=== PATIENT | male | born 1975 | race Caucasian/White ===

== ENCOUNTER 2018-06-11 11:00 | Emergency (ER) | payer OTHER ==
[~2018-06-11] VITALS: Ht 185.4 cm; Wt 68.0 kg
--- NOTE | 2018-06-11 11:18 | PHYS DOC ---
Past History Additional Past Surgical Histo: cervical fusion Smoking: Cigarettes Adult General Chief Complaint Chief Complaint: CHEST PAIN HPI HPI Patient is a 42-year-old male who presents to the emergency department for evaluation. He states that he saw his PCP yesterday for Toradol injection, related to his recurrent migraine headaches. He states that he looked flushed in the office in the PCP did a headache, and inquired if the patient was having any chest pain. The patient denied, and his PCP told him that he should come to the emergency department if he experiences any chest pain in the next 24 hours. The patient awoke this morning with right-sided chest discomfort, primarily in the area of his right shoulder. He thus presented to the emergency department. He denies any shortness of breath, pleuritic pain, dizziness, lightheadedness, exertional pain, or positional pain. Palpation of the affected area does not particularly worsen the patient's pain. There are no known alleviating or exacerbating factors to the patient's symptoms, although states the pain has gradually been worsening over the past 6 hours. The patient denies any family history of premature onset coronary artery disease. Patient's HEART score is a 1. Review of Systems Review of Systems Constitutional: Denies fever or chills [] Eyes: Denies change in visual acuity, redness, or eye pain [] HENT: Denies nasal congestion or sore throat [] Respiratory: Denies cough or shortness of breath [] Cardiovascular: No additional information not addressed in HPI [] GI: Denies abdominal pain, nausea, vomiting, bloody stools or diarrhea [] : Denies dysuria or hematuria [] Musculoskeletal: Denies back pain or joint pain [] Integument: Denies rash or skin lesions [] Neurologic: Denies current headache, focal weakness or sensory changes [] Endocrine: Denies polyuria or polydipsia [] All other systems were reviewed and found to be within normal limits, except as documented in this note. Allergies Allergies Allergies Coded Allergies Type Severity Reaction Last Updated Verified meperidine Allergy Unknown 06/11/18 Yes morphine Allergy Unknown 06/11/18 Yes Physical Exam Physical Exam PHYSICAL EXAM: CONSTITUTIONAL: Well developed, well nourished HEAD: normocephalic, atraumatic EENT: PERRL, EOMI. Conjunctivae normal color, sclerae non-icteric; moist mucous membranes. NECK: Supple, non-tender; no meningismus. LUNGS: Lungs CTA, breathing even and unlabored. Normal air movement. HEART: Regular rate and rhythm, no murmur CHEST: No deformity; non-tender ABDOMEN: The abdomen is soft, and non-tender, no masses or bruits. EXTREM: Normal ROM; no deformity, no calf tenderness. Normal pulses palpable in all extremities. There is no pedal edema. SKIN: No rash; no diaphoresis NEURO: Alert; normal speech and cognition; CN's grossly intact; strength grossly intact without focal deficit. BACK: No CVA TTP. EKG EKG [Normal sinus rhythm a rate of 90 bpm, normal axis, normal intervals, nonspecific ST/T changes.] Radiology/Procedures Radiology/Procedures [PROCEDURE: CHEST PA & LATERAL PA and lateral chest radiograph. History: Chest pain since the morning. Comparison: None. Findings: Cardiomediastinal silhouette is within normal limits for size. Bilateral lung graves appear clear without evidence of infiltrate, effusion, or pneumothorax. Lung graves appear hyperinflated. Impression: 1. No acute cardiopulmonary process. 2. Lung graves appear hyperinflated, suggesting obstructive lung disease.] Course & Med Decision Making Course & Med Decision Making Pertinent Labs and Imaging studies reviewed. (See chart for details) [12:00 PM:Patient remains stable. I discussed test results, the need for close follow-up, and return precautions.] Dragon Disclaimer Dragon Disclaimer This electronic medical record was generated, in whole or in part, using a voice recognition dictation system. Departure Departure: Impression: Primary Impression: Atypical chest pain Disposition: HOME, SELF-CARE Condition: STABLE Referrals: RULA BALL MD (PCP) Patient Instructions: Chest Pain (Nonspecific), Chest Wall Pain NAFISA DEAL MD Jun 11, 2018 11:18
[2018-06-11] MEDS ORDERED: ASPIRIN 81 MG TAB.CHEW PO ONE (11:30)
[2018-06-11 11:31] LABS: BASO % 1 % (0-3); EOS # 0.1 x10^3/uL (0.0-0.7); EOS % 1 % (0-3); HEMATOCRIT 46.1 % (39.0-53.0); HEMOGLOBIN 16.1 g/dL (13.0-17.5); LYMPH # 1.6 x10^3/uL (1.0-4.8); LYMPH % 26 % (24-48); MEAN CORPUSCULAR HEMOGLOBIN 33 pg (25-35); MEAN CORPUSCULAR HGB CONC 35 g/dL (31-37); MEAN CORPUSCULAR VOLUME 95 fL (79-100); MONO # 0.5 x10^3/uL (0.0-1.1); MONO % 8 % (0-9); NEUT # 3.9 x10^3uL (1.8-7.7); NEUT % 64 % (31-73); PLATELET COUNT 222 x10^3/uL (140-400); RED BLOOD COUNT 4.87 x10^6/uL (4.30-5.70); RED CELL DISTRIBUTION WIDTH 13.1 % (11.5-14.5)
[2018-06-11 11:35] VITALS: BP 123/65
--- NOTE | 2018-06-11 11:39 | EKG ---
[address] [address] Test Date: 2018-06-11 Test Time: 11:04:55 Pat Name: PAULY PURDY Department: Room: Gender: M Construction Coordinator: : 1975 Requested By: NAFISA DEAL Order Number: [id number] Reading MD: Measurements Intervals [place] Rate: 98 P: 70 OK: 142 QRS: 90 QRSD: 88 T: 62 QT: 326 QTc: 418 Interpretive Statements SINUS RHYTHM NO SPECIFIC ECG ABNORMALITIES RI6.01 No previous ECG available for comparison
--- NOTE | 2018-06-11 11:44 | RAD ---
PA and lateral chest radiograph. History: Chest pain since the morning. Comparison: None. Findings: Cardiomediastinal silhouette is within normal limits for size. Bilateral lung graves appear clear without evidence of infiltrate, effusion, or pneumothorax. Lung graves appear hyperinflated. Impression: 1. No acute cardiopulmonary process. 2. Lung graves appear hyperinflated, suggesting obstructive lung disease. Electronically signed by: Reese Cooper MD (06/11/2018 11:41 AM) [place] [id number]
[2018-06-11 11:54] LABS: ALBUMIN 4.3 g/dL (3.4-5.0); ALBUMIN/GLOBULIN RATIO 1.3 (1.0-1.7); CALCIUM 9.2 mg/dL (8.5-10.1); CREATININE 1.1 mg/dL (0.7-1.3); GFR 73.8; POTASSIUM 3.9 mmol/L (3.5-5.1); TOTAL BILIRUBIN 0.4 mg/dL (0.2-1.0); TOTAL PROTEIN 7.5 g/dL (6.4-8.2)
== END 2018-06-11 12:10 | disposition home or self-care (01) ==
LOC: ER 11:00
DX: R07.89 Other chest pain (principal); G43.909 Migraine, unspecified, not intractable, without status migrainosus; F17.210 Nicotine dependence, cigarettes, uncomplicated; Z88.8 Allergy status to other drugs, medicaments and biological substances; Z88.5 Allergy status to narcotic agent
CPT/HCPCS: 36415; 71046; 80053; 82553; 84484; 85025; 85379; 93005; 99285-25